=== PATIENT | female | born 1970 | race African-American/Black ===

== ENCOUNTER 2017-05-02 11:37 | Emergency (ER) | payer BC, OTHER ==
[~2017-05-02] VITALS: Ht 160 cm; Wt 114.0 kg
[2017-05-02] MEDS ORDERED: HYDR25TA PO (12:29)
[2017-05-02] MEDS ORDERED: SODIUM CHLORIDE 0.9% 1,000 ML IV ONE (15:02)
[2017-05-02] MEDS ORDERED: ONDANSETRON HCL 4MG/2ML VIAL IV STA (15:02)
[2017-05-02] MEDS ORDERED: MORPHINE SULFATE 4 MG/ML CPJ (NOT FOR IM USE) IV STA (15:02)
[2017-05-02] MEDS ORDERED: HYDRALAZINE 20MG/ML VIAL IV ONE (15:15)
[2017-05-02 15:22] LABS: EOSINOPHILS % 3.6 % (0.0-5.0); HEMATOCRIT. 45.2 % (36.0-48.0); HEMOGLOBIN. 15.1 g/dL (12.0-16.0); LYMPHOCYTES % 27.5 % (20.0-50.0); MEAN CORPUSCULAR HEMOGLOBIN 29.5 pg (28.0-32.0); MEAN CORPUSCULAR VOLUME 88.2 fL (81.0-99.0); MEAN PLATELET VOLUME 8.2 fl (7.4-10.4); MONOCYTES % 7.8 % (2.0-8.0); NEUTROPHILS % 60.1 % (40.0-76.0); PLATELET 254 x1000/uL (130-400); RED BLOOD CELL COUNT 5.12 mill/uL (4.2-5.4); RED CELL DISTRIBUTION WIDTH 14.4 % (11.6-14.6)
[2017-05-02 15:32] LABS: PROTHROMBIN TIME 10.5 sec (9.4-11.6)
[2017-05-02 15:34] LABS: CARBON DIOXIDE 28 mEq/L (21-32); CHLORIDE 101 mEq/L (98-107)
[2017-05-02 15:40] LABS: HCG SCREEN NEGATIVE
[2017-05-02 15:58] LABS: CLARITY URINE CLEAR (CLEAR); COLOR URINE YELLOW (YELLOW); KETONES URINE NEGATIVE (NEGATIVE); LEUKOCYTE ESTERASE URINE NEGATIVE (NEGATIVE); NITRITE URINE NEGATIVE (NEGATIVE); OCCULT BLOOD URINE NEGATIVE (NEGATIVE); PROTEIN URINE NEGATIVE (NEGATIVE); SPECIFIC GRAVITY URINE 1.009 (1.005-1.030); UROBILINOGEN URINE 0.2 E.U./dL (0.2-1.0)
[2017-05-02] MEDS ORDERED: MORPHINE SULFATE 4 MG/ML CPJ (NOT FOR IM USE) IV ONE (18:30)
[2017-05-02] MEDS ORDERED: HYDROCODONE/ACETAMINOPHEN 5/325MG TABLET PO ONE (19:30)
[2017-05-02 20:01] VITALS: BP 165/105
== END 2017-05-02 20:00 | disposition home or self-care (01) ==
LOC: ER 12:16
DX: M54.5 Low back pain (principal); R10.816 Epigastric abdominal tenderness; F17.200 Nicotine dependence, unspecified, uncomplicated; I10 Essential (primary) hypertension; R79.1 Abnormal coagulation profile; Z87.442 Personal history of urinary calculi
CPT/HCPCS: 36415; 71010; 74176; 76700; 80053; 81003; 83690; 84703; 85025; 85610; 85730; 86850; 86900; 86901; 93005; 96361; 96374; 96375; 96376; 99285; J0360; J2270; J2405; J7030